=== PATIENT | female | born 1975 | race Hispanic/Latino ===

== ENCOUNTER 2023-08-14 18:38 | Emergency (ER) | payer OTHER ==
[2023-08-14 20:10] LABS: Absolute Basophils 0.1 K/uL (0-0.5); Absolute Eosinophils 0.4 K/uL (0-0.5); Absolute Lymphocytes (CBC) 3.1 K/uL (0.7-4.9); Absolute Monocytes 0.6 K/uL (0.1-1.3); Absolute Neutrophil 11.2 K/uL (1.8-8.0); Basophils % 0.5 % (0-1.3); Eosinophils % 2.4 % (0-4.4); Hematocrit 36.7 % (36.0-45.0); Hemoglobin 12.3 g/dL (12.0-15.0); MCH 31.6 pg (27.0-35.0); MCHC 33.5 g/dL (32.0-36.0); MCV 94.2 fL (80-100); MPV 7.2 fL (7.6-11.3); Monocytes % 4.2 % (3.3-12.3); Neutrophils % 72.9 % (41.7-73.7); Platelets 582 thou/uL (152-406); Red Cell Distribution Width 15.6 % (12.1-15.2); Specific Gravity 1.016 (1.005-1.030)
[2023-08-14 20:14] LABS: Specific Gravity 1.016 (1.005-1.030); Sqamous Epithelial 20-50 /HPF (None Seen); Urine Bacteria <20 /HPF (<20); Urine Bilirubin NEGATIVE (Negative); Urine Blood 1+ (Negative); Urine Clarity Extremely Turbid (Clear); Urine Color Light-Yellow (Yellow); Urine Culture Reflex Order NOT NEEDED; Urine Glucose NEGATIVE (Negative); Urine Ketones NEGATIVE (Negative); Urine Microscopic Reflex YN ORDER UMIC; Urine Mucus Slight /HPF (None Seen); Urine Nitrite NEGATIVE (Negative); Urine Protein NEGATIVE (Negative); Urine Urobilinogen Normal (Normal); Urine WBC >50 /HPF (<5); Urine Yeast (Budding) Trace /HPF (None Seen)
[2023-08-14 20:35] LABS: Albumin 3.5 g/dL (3.4-5.0); Albumin/Globulin Ratio 0.8 (1.1-1.8); Anion Gap 11.4 mEq/L (5.0-15.0); Bilirubin Total 0.3 mg/dL (0.2-1.0); Globulin 4.3 g/dL (2.3-3.5); Potassium 4.4 mEq/L (3.5-5.1); Protein, Total 7.8 g/dL (6.4-8.2)
[2023-08-14 21:34] LABS: Band Neutrophils 3 % (0-1); Differential Total Cells Count 100; Eosinophils 2 % (0-3); Lymphocytes 23 % (15-42); Metamyelocytes 1 % (0-0); Monocytes 4 % (0-10); Reactive Lymphocytes 2 %; Segmented Neutrophils 65 % (40-80); Smudge Cells 2
[2023-08-14 21:35] LABS: Basophilic Stippling 1+; Blood Morphology Comment NOTED (NOT SEEN); Platelet Estimate INCR; Polychromasia 1+
[2023-08-14] MEDS ORDERED: MORPHINE 4 MG/ML SYR ONE (21:42)
[2023-08-14] MEDS ORDERED: ONDANSETRON 4 MG/2 ML VIAL ONE (21:42)
[2023-08-14] MEDS ORDERED: NA CHLORIDE 0.9% 1,000 ML ONE (21:42)
--- NOTE | 2023-08-14 21:50 | RAD REPORT ---
EXAM DESCRIPTION: CT - Abdomen Pelvis W Contrast - 08/14/2023 8:57 pm CLINICAL HISTORY: Abd pain;Flank pain COMPARISON: No comparisons TECHNIQUE: Thin cut axial CT imaging of the abdomen and pelvis was performed following intravenous a dministration of iodinated contrast. Multiplanar reformats were generated and reviewed. All CT scans are performed using dose optimization technique as appropriate and may include automated exposure control or mA/KV adjustment according to patient size. FINDINGS: No suspicious findings in the lung bases. The liver, spleen, adrenal glands, and pancreas show no suspicious findings. Gallbladder was surgical ly removed. Symmetric renal function is seen with no hydronephrosis or suspicious renal mass. No dilated bowel loops or bowel wall thickening. No free air, free fluid or inflammatory stranding. N o hernia, mass or bulky lymphadenopathy. Minimal amount of gas and fluid at the vaginal cuff. Reporte dly, patient is status post recent gastrectomy. Dominant right ovarian 4.2 cm cyst, favored to be phy siologic. The urinary bladder is without significant finding. No suspicious bony findings. IMPRESSION: No acute intra-abdominal process. Sequelae of recent hysterectomy and other incidental findings as above.
[2023-08-14 22:06] LABS: Sqamous Epithelial <5 /HPF (None Seen); Urine Bacteria None Seen /HPF (<20); Urine Bilirubin NEGATIVE (Negative); Urine Blood Trace (Negative); Urine Clarity Clear (Clear); Urine Color Light-Yellow (Yellow); Urine Culture Reflex Order NOT NEEDED; Urine Glucose NEGATIVE (Negative); Urine Ketones NEGATIVE (Negative); Urine Micro Reflex YN NO BILL MICROSCOPIC; Urine Mucus Slight /HPF (None Seen); Urine Nitrite NEGATIVE (Negative); Urine Protein NEGATIVE (Negative); Urine RBC <5 /HPF (None Seen); Urine Urobilinogen Normal (Normal); Urine WBC <5 /HPF (<5)
[2023-08-14 22:11] LABS: Specific Gravity > 1.030 (1.005-1.030)
[2023-08-14 23:34] LABS: PT Prothrombin Time 13.1 SECONDS (9.5-12.5); PTT, Activated Partial Thromb 30.7 SECONDS (24.3-36.9); Protime INR 1.2
[2023-08-14] MEDS ORDERED: CEFTRIAXONE 1000 MG/VIAL ONE (23:46)
--- NOTE | 2023-08-14 23:49 | EDPHYS ---
Physician Documentation [facility] Name: Yakelin Martin Age: 48 yrs Sex: Female : 1975 Arrival Date: 08/14/2023 Time: 18:38 Bed 15 Private MD: ED Physician Arvind Roe HPI: 08/13 19:42 This 48 yrs old Female presents to ER via Ambulatory with complaints of sb4 Nausea, Right side pain, Shortness Of Breath. 19:42 Patient reports right-sided and right flank pain for a few days now. She also reports sb4 associated nausea and shortness of breath that began today. States that she had a hysterectomy 2 weeks ago at [facility] and does not feel that this is related. States that she was told after discharge from the hospital that she had bacteria in her urine has been taking amoxicillin for the infection since. She went to [facility] earlier today but their CT machine was not working. 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 - Infectious Disease History:: Denies. - Social history:: Smoking status: unknown. ROS: 19:42 Constitutional: Negative for fever, chills, and weight loss, sb4 19:42 Abdomen/GI: Positive for abdominal pain, nausea, 19:42 Back: Positive for flank pain, 19:42 All other systems are negative, Exam: 19:42 Head/Face: Normocephalic, atraumatic. Eyes: Extra-ocular motions intact. Periorbital sb4 areas with no swelling, redness, or edema. ENT: Mucous membranes moist. Cardiovascular: Regular rate and rhythm with a normal S1 and S2. Respiratory: Lungs have equal breath sounds bilaterally, clear to auscultation and percussion. No rales, rhonchi or wheezes noted. No increased work of breathing, no retractions or nasal flaring. Abdomen/GI: Soft, non-tender, no distension. Skin: Warm, dry with normal turgor. Normal color with no rashes, no lesions, and no evidence of cellulitis. 19:42 Constitutional: The patient appears alert, awake, obese, uncomfortable, 19:42 Back: CVA tenderness, is noted on the right, Vital Signs: 19:34 BP 156 / 104; Pulse 84; Resp 22; Temp 98.1(O); Pulse Ox 96% on R/A; Weight 111.13 kg; ss Height 4 ft. 11 in. ; Pain 7/10; 21:51 BP 109 / 83; Pulse 84; Resp 18; Pulse Ox 99% on R/A; mb9 08/14 00:25 BP 110 / 67; Pulse 88; Resp 16; Pulse Ox 99% on R/A; kd3 08/13 19:34 Body Mass Index 49.48 (111.13 kg, 149.86 cm) ss 08/13 19:34 Pain Scale: Adult ss MDM: 08/13 19:05 Patient medically screened. sb4 23:48 Data reviewed: vital signs, nurses notes, lab test result(s), radiologic studies, and sb4 as a result, I will discharge patient. Counseling: I had a detailed discussion with the patient and/or guardian regarding the historical points, exam findings, and any diagnostic results supporting the discharge/admit diagnosis, lab results, radiology results, to return to the emergency department if symptoms worsen or persist or if there are any questions or concerns that arise at home. 08/13 19:40 Order name: CBC with Diff; Complete Time: 21:35 sb4 08/13 19:40 Order name: CMP; Complete Time: 20:38 sb4 08/13 19:40 Order name: Lipase; Complete Time: 20:38 sb4 08/13 19:40 Order name: Test, Urine; Complete Time: 20:14 sb4 08/13 19:40 Order name: Urinalysis w/ reflexes; Complete Time: 20:14 sb4 08/13 21:33 Order name: Manual Differential; Complete Time: 21:35 EDMS 08/13 21:36 Order name: UAM; Complete Time: 22:12 sb4 08/13 21:55 Order name: Blood Culture Adult (2) sb4 08/13 21:55 Order name: Lactate w/ 2H reflex if indic.; Complete Time: 22:45 sb4 08/13 21:55 Order name: PT-INR; Complete Time: 23:35 sb4 08/13 21:55 Order name: Ptt, Activated; Complete Time: 23:35 4 08/13 19:40 Order name: CT Abd/Pelvis - IV Contrast Only; Complete Time: 21:54 4 08/13 19:40 Order name: IV Saline Lock; Complete Time: 20:01 4 08/13 19:40 Order name: Labs collected and sent; Complete Time: 20:01 [facility] 08/13 20:14 Order name: Misc. Order: recollect urine, contaminated; Complete Time: 21:50 [facility] 08/13 22:27 Order name: Misc. Order: RECOLLECT - not enough blood (fill tube); Complete Time: 23:50 ty Administered Medications: 21:48 Drug: Ondansetron IVP 4 mg IVP once; over 2 minutes Route: IVP; Site: right antecubital;mb9 08/14 00:27 Follow up: Response: No adverse reaction 3 08/13 21:50 Drug: NS 0.9% IV 1000 ml IV at 1 bolus Per protocol; 1000 mL bolus Route: IV; Rate: 1 mb9 bolus; Site: right antecubital; 23:58 Follow up: IV Status: Completed infusion; IV Intake: 1000ml kd3 21:50 Drug: morphine IVP or IV 4 mg IVP once over 4 mins Route: IVP; Infused Over: 4 mins; mb9 Site: right antecubital; 08/14 00:27 Follow up: Response: No adverse reaction; Pain is decreased kd3 08/13 23:50 Drug: Rocephin IV 1 grams IV at calculated rate once; Given slow IV push per pharmacy kd3 instructions Route: IV; Rate: calculated rate; Site: right antecubital; 23:58 Follow up: IV Status: Completed infusion kd3 23:58 Drug: Hydrocodone-Acetaminophen PO (7.5 mg-325 mg) 1 tabs PO once Route: PO; kd3 08/14 00:26 Follow up: Response: No adverse reaction; Pain is decreased kd3 08/13 23:58 Drug: metoCLOPramide IVP 10 mg IVP once; over 1 to 2 minutes Route: IVP; Site: right kd3 antecubital; 08/14 00:26 Follow up: Response: No adverse reaction kd3 Disposition: 07:39 Co-signature as Attending Physician, Arvind Roe MD I agree with the assessment sp4 and plan of care. I reviewed the patient's care provided by the Advanced Practice Provider and agree with the diagnosis and treatment plan. Disposition Summary: 08/14/23 23:49 Discharge Ordered Notes: Location: Home sb4 Problem: new sb4 Symptoms: have improved sb4 Condition: Stable sb4 Diagnosis - UTI/ Urinary tract infection, site not specified sb4 - Abdominal pain, unspecified sb4 Followup: sb4 - With: Emergency Department - When: As needed - Reason: Trouble breathing, Worsening of condition Discharge Instructions: - Discharge Summary Sheet sb4 - Abdominal Pain, Adult sb4 - Urinary Tract Infection, Adult, [id number] sb4 Forms: - Antibiotic Education sb4 - Patient Portal Instructions sb4 - Leadership Thank You Letter sb4 Prescriptions: - Cephalexin 500 mg Oral Capsule - take 1 capsule ORAL route every 8 hours for 10 days; 30 capsule; Refills: 0, sb4 Product Selection Permitted Signatures: Dispatcher [employer] EDMS Karen De La Torre, RN RN Mireille Dela Cruz RN RN kd3 Rody Fenton, PA-C PA-C sb4 Viridiana Del Rosario RN RN mb9 Arvind Roe MD MD sp4 Julius Justin ty Corrections: (The following items were deleted from the chart) 08/13 21:33 20:15 Urinalysis W/Microscopic+U.LAB.BRZ ordered. EDMS EDMS
--- NOTE | 2023-08-14 23:49 | ER ---
Nurse's Notes [facility] Name: Yakelin Martin Age: 48 yrs Sex: Female : 1975 Arrival Date: 08/14/2023 Time: 18:38 Bed 15 Private MD: Diagnosis: UTI/ Urinary tract infection, site not specified;Abdominal pain, unspecified Presentation: 08/13 19:35 Chief complaint: Patient states: I have pain in my right upper quadrant that wraps ss around my side to my back. The pain started last night and has been intensifying. I have been passing gas, belching having bowl moments like normal. Ebola Screen: No symptoms or risks identified at this time. Initial Sepsis Screen: Does the patient meet any 2 criteria? No. Patient's initial sepsis screen is negative. Does the patient have a suspected source of infection? No. Patient's initial sepsis screen is negative. Risk Assessment: Do you want to hurt yourself or someone else? Patient reports no desire to harm self or others. Onset of symptoms was August 14, 2023. 19:35 Method Of Arrival: Ambulatory ss 19:35 Acuity: FERNANDO 3 ss 19:46 Coronavirus screen: Vaccine status: unknown. ss Triage Assessment: 19:35 General: Appears uncomfortable, Behavior is calm, cooperative. Pain: Complains of pain ss in right upper quadrant Pain radiates to right mid back. Neuro: Level of Consciousness is awake, alert, obeys commands, Oriented to person, place, time, situation. GI: Reports upper abdominal pain, nausea. 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 - Infectious Disease History:: Denies. - Social history:: Smoking status: unknown. Screenin/18 00:25 [facility] ED Fall Risk Assessment (Adult) History of falling in the last 3 months, kd3 including since admission No falls in past 3 months (0 pts) Confusion or Disorientation No (0 pts) Intoxicated or Sedated No (0 pts) Impaired Gait No (0 pts) Mobility Assist Device Used No (0 pt) Altered Elimination No (0 pt) Score/Fall Risk Level 0 - 2 = Low Risk Oriented to surroundings. Abuse screen: Denies threats or abuse. Denies injuries from another. Nutritional screening: No deficits noted. Tuberculosis screening: No symptoms or risk factors identified. Assessment: 00:24 Reassessment: Patient states feeling better. Patient states symptoms have improved. kd3 General: Appears uncomfortable, Behavior is calm, cooperative. Pain: Complains of pain in abdomen and right upper quadrant. GI: Abdomen is obese. Vital Signs: 08/13 19:34 BP 156 / 104; Pulse 84; Resp 22; Temp 98.1(O); Pulse Ox 96% on R/A; Weight 111.13 kg; ss Height 4 ft. 11 in. ; Pain 7/10; 21:51 BP 109 / 83; Pulse 84; Resp 18; Pulse Ox 99% on R/A; mb9 08/14 00:25 BP 110 / 67; Pulse 88; Resp 16; Pulse Ox 99% on R/A; kd3 08/13 19:34 Body Mass Index 49.48 (111.13 kg, 149.86 cm) ss 08/13 19:34 Pain Scale: Adult ss ED Course: 08/13 18:40 Patient arrived in ED. im 18:41 Rody Fenton PA-C is PHCP. sb4 18:41 Juan Santiago MD is Attending Physician. sb4 19:35 Arm band placed on right wrist. ss 19:38 Triage completed. ss 20:01 CBC with Diff Sent. bc6 20:01 CMP Sent. bc6 20:01 Lipase Sent. bc6 20:01 Test, Urine Sent. bc6 20:01 Urinalysis w/ reflexes Sent. bc6 20:01 Initial lab(s) drawn, by ne, sent to lab. Inserted saline lock: 20 gauge in left bc6 antecubital area, using aseptic technique. Blood collected. 20:58 CT Abd/Pelvis - IV Contrast Only In Process Unspecified. EDMS 21:36 Laura pineda, RN is Primary Nurse. pc2 21:51 Urine collected: clean catch specimen, clear. mb9 23:43 Attending Physician role handed off by Juan Santiago MD sp4 23:43 Arvind Roe MD is Attending Physician. sp4 08/14 00:25 No provider procedures requiring assistance completed. IV discontinued, intact, kd3 bleeding controlled, No redness/swelling at site. Pressure dressing applied. 00:26 Patient has correct armband on for positive identification. Provided Education on: kd3 medication . Administered Medications: 08/13 21:48 Drug: Ondansetron IVP 4 mg IVP once; over 2 minutes Route: IVP; Site: right antecubital;mb9 08/14 00:27 Follow up: Response: No adverse reaction kd3 08/13 21:50 Drug: NS 0.9% IV 1000 ml IV at 1 bolus Per protocol; 1000 mL bolus Route: IV; Rate: 1 mb9 bolus; Site: right antecubital; 23:58 Follow up: IV Status: Completed infusion; IV Intake: 1000ml kd3 21:50 Drug: morphine IVP or IV 4 mg IVP once over 4 mins Route: IVP; Infused Over: 4 mins; mb9 Site: right antecubital; 08/14 00:27 Follow up: Response: No adverse reaction; Pain is decreased kd3 08/13 23:50 Drug: Rocephin IV 1 grams IV at calculated rate once; Given slow IV push per pharmacy kd3 instructions Route: IV; Rate: calculated rate; Site: right antecubital; 23:58 Follow up: IV Status: Completed infusion kd3 23:58 Drug: Hydrocodone-Acetaminophen PO (7.5 mg-325 mg) 1 tabs PO once Route: PO; kd3 08/14 00:26 Follow up: Response: No adverse reaction; Pain is decreased kd3 08/13 23:58 Drug: metoCLOPramide IVP 10 mg IVP once; over 1 to 2 minutes Route: IVP; Site: right 3 antecubital; 08/14 00:26 Follow up: Response: No adverse reaction kd3 Medication: 00:26 VIS not applicable for this client. kd3 Intake: 08/13 23:58 IV: 1000ml; Total: 1000ml. kd3 Outcome: 23:49 Discharge ordered by . sheryl 08/14 00:26 Discharged to home ambulatory, kd3 Condition: stable Discharge instructions given to patient, Instructed on discharge instructions, follow up and referral plans. Demonstrated understanding of instructions, follow-up care, medications, Prescriptions given X 1, 00:27 Patient left the ED. kd3 Signatures: Dispatcher [employer] EDMS Karen De La Torre, RN RN ss Mireille Dela Cruz, RN RN kd3 Rody Fenton, PA-C PA-C sb4 Viridiana Del Rosario, ADAM RN mb9 Kary Lopez6 Arvind Roe MD MD sp4 Sherie Munroe Pam, RN RN pc2
[2023-08-14] MEDS ORDERED: HYDROCODONE/APAP 7.5/325 MG TAB ONE (23:53)
[2023-08-14] MEDS ORDERED: METOCLOPRAMIDE 10 MG/2mL INJ ONE (23:53)
[2023-08-14] MEDS ORDERED: NA CHLORIDE 0.9% 100 ML ONE (23:53)
[2023-08-15 01:17] VITALS: BP 110/67; TEMP 98.1; O2SAT 99
== END 2023-08-15 00:27 | disposition home or self-care (01) ==
LOC: ER 18:38
DX: N39.0 Urinary tract infection, site not specified (principal)
CPT/HCPCS: 96361; 87040 ×2; 85025; 81001 ×2; 36415; 81025; 85610; 83605; 85730; 83690; 80053; 74177; 96375; 96374; 99284; Q9967; J2765; J2405; J7030; J0696